=== PATIENT | male | born 1965 | race Caucasian/White ===

== ENCOUNTER 2018-08-26 14:58 | Emergency (ER) | payer OTHER ==
[~2018-08-26] VITALS: Ht 177.8 cm; Wt 93.0 kg
[2018-08-26] MEDS ORDERED: AMOX875 PO (16:33)
[2018-08-26] MEDS ORDERED: Ocuflox5 ML LEFTEYE (17:22)
== END 2018-08-26 17:30 | disposition home or self-care (01) ==
LOC: ER 14:58
DX: S05.02XA Injury of conjunctiva and corneal abrasion without foreign body, left eye, initial encounter (principal); F17.210 Nicotine dependence, cigarettes, uncomplicated; X58.XXXA Exposure to other specified factors, initial encounter
CPT/HCPCS: 70480; 99283-25